=== PATIENT | female | born 1970 | race Caucasian/White ===

== ENCOUNTER 2020-12-14 09:45 | Outpatient (CLI) | payer BC, SELFPAY | END 2020-12-14 09:46 | disposition home or self-care (01) | LOC: ANHCOVIDVC 09:45 | PROVIDERS: PCP Family Medicine | DX: Z23 Encounter for immunization (principal) | CPT/HCPCS: 0001A; 91300 ==

== ENCOUNTER 2021-01-04 09:42 | Outpatient (CLI) | payer BC, SELFPAY | END 2021-01-04 09:43 | disposition home or self-care (01) | LOC: ANHCOVIDVC 09:43 | PROVIDERS: PCP Family Medicine | DX: Z23 Encounter for immunization (principal) | CPT/HCPCS: 0002A; 91300 ==

== ENCOUNTER → 2022-07-07 12:04 | Outpatient (CLI) | payer BC, SELFPAY ==
--- NOTE | ~2022-07-07 | XR_ITS ---
EXAM: XR lumbar spine min 4V DATE: 07/07/2022 12:18 HISTORY: NO INJURY LBP WITH NUMBNESS DOWN RIGHT LEG FOR 6 MONTHS . COMPARISON: None available. FINDINGS: 5 nonrib-bearing lumbar-type vertebral bodies. Pedicles intact. 3 mm anterolisthesis at L5 -S1. Bilateral L5 pars defects. Vertebral body heights preserved. Multilevel disc space narrowing and marginal osteophytosis, severe at L5-S1. Mild facet arthropathy. No fracture or dislocation. IMPRESSION: Bilateral L5 pars defects. Grade 1 anterolisthesis and severe degenerative disc disease a t L5-S1. Reviewed, dictated and finalized at location K. IMPRESSION: Bilateral L5 pars defects. Grade 1 anterolisthesis and severe degen erative disc disease at L5-S1.
== END ==
PROVIDERS: PCP Family Medicine; Visit Provider Chiropractor
DX: M54.16 Radiculopathy, lumbar region (principal); M51.37 Other intervertebral disc degeneration, lumbosacral region
CPT/HCPCS: 72110

== ENCOUNTER → 2022-08-09 09:22 | Outpatient (CLI) | payer BC, SELFPAY ==
--- NOTE | ~2022-08-09 | MR_ITS ---
EXAMINATION: MR lumbar spine wo con DATE: 08/09/2022 10:00 INDICATION: Low back pain. Right leg numbness. Lumbar disc herniation. TECHNIQUE: Magnetic resonance imaging (MRI) of the lumbar spine was performed without intravenous con trast. Sequences included sagittal T2-weighted FSE, sagittal T2-weighted FS FSE, sagittal T1-weighted FSE, and axial T2-weighted FSE. COMPARISON: Lumbar spine radiographs 07/07/2022 FINDINGS: There are chronic bilateral L5 pars defects. There is 4 degrees dextrocurvature of thoracol umbar spine. There is 4 mm anterolisthesis of L5 on S1. Vertebral body heights are normal. There is m oderately decreased disc height at L5-S1 with endplate remodeling. The distal spinal cord signal inte nsity is normal. The conus medullaris is at L2. The following disc levels are specifically discussed: L1-L2: The disc does not extend beyond the endplate margin. There is mild left facet joint osteoarthr itis. There is no neural foraminal stenosis. There is no central canal stenosis. L2-L3: The disc is mildly bulging. There is mild bilateral facet joint osteoarthritis. There is mild bilateral neural foraminal stenosis. There is no central canal stenosis. L3-L4: The disc is bulging. There is no facet joint osteoarthritis. There is mild bilateral neural fo raminal stenosis. There is mild central canal stenosis. L4-L5: The disc does not extend beyond the endplate margin. There is no facet joint osteoarthritis. T here is no neural foraminal stenosis. There is no central canal stenosis. L5-S1: The disc is bulging and has an annular fissure. There is mild bilateral facet joint osteoarthr itis. There is mild bilateral neural foraminal stenosis. There is mild central canal stenosis. IMPRESSION: 1. Moderate lower lumbar spondylosis. 2. Chronic bilateral L5 pars defects with grade 1 anterolisthesis of L5 on S1. Reviewed, dictated and finalized at location A. [employer]
== END ==
PROVIDERS: PCP Family Medicine; Visit Provider Chiropractor
DX: M51.26 Other intervertebral disc displacement, lumbar region (principal); M47.896 Other spondylosis, lumbar region
CPT/HCPCS: 72148